=== PATIENT | female | born 1935 | race Caucasian/White ===

== ENCOUNTER 2018-10-21 17:02 | Inpatient (IN) | payer OTHER ==
[~2018-10-21] VITALS: Ht 167.6 cm; Wt 94.0 kg
[~2018-10-21 17:02] MED LIST: LEVAQUIN 500 M500 MG PO; PROAIR HFA8.5 GM IH; ULTRAM 50MG TAB50 MG PO; VICODIN 5-5001 EACH PO
[2018-10-21 17:03] VITALS: BP 153/78
[2018-10-21 18:03] LABS: ABSOLUTE NEUTROPHILS 6.4 thou/uL (1.4-8.2); BASOPHILS 0.8 % (0.0-2.0); EOSINOPHILS 2.3 % (0.0-3.0); HEMATOCRIT 43.4 % (37.0-47.0); HEMOGLOBIN 14.7 gm/dL (12.0-15.0); MCHC 33.9 g/dL (28.0-37.0); MCV 88.5 fL (80.0-100.0); MONOCYTES 8.6 % (1.0-8.0); PLATELET COUNT 263 thou/uL (150-400); POLYS 72.3 % (36.0-66.0); RBC 4.91 mil/uL (4.20-5.00); RDW 13.9 % (10.5-14.5); WBC 8.8 thou/uL (4.0-11.0)
[2018-10-21 18:09] LABS: CALCIUM 9.5 mg/dL (8.5-10.1); POTASSIUM 3.5 mmol/L (3.5-5.1)
[2018-10-21 18:21] LABS: TROPONIN-I 3.97 ng/mL (<0.06)
[2018-10-21] MEDS ORDERED: ZANAFLEX2 MG PO (19:03)
[2018-10-21] MEDS ORDERED: CATAPRES0.2 MG PO (19:04)
[2018-10-21] MEDS ORDERED: TOPROL XL100 MG PO (19:06)
[2018-10-21] MEDS ORDERED: CYMBALTA30 MG PO (19:06)
[2018-10-21] MEDS ORDERED: LOSARTAN POTAS100 MG PO (19:06)
[2018-10-21] MEDS ORDERED: ATIVAN0.5 MG PO (19:08)
[2018-10-21 20:19] VITALS: BP 153/78
[2018-10-21 20:37] LABS: PROTIME 10.2 Seconds (9.3-11.4)
[2018-10-21 20:59] VITALS: BP 153/78
[2018-10-21 21:00] VITALS: BP 144/77
[2018-10-22] VITALS (7 sets, daily range): BP systolic 104–136; BP diastolic 53–78
[2018-10-22 06:43] LABS: ANION GAP 8 mmol/L (7-16); BUN 11 mg/dL (7-18); CALCIUM 8.8 mg/dL (8.5-10.1); CHLORIDE 107 mmol/L (98-107); CHOLESTEROL 155 mg/dL (<200); CO2 29 mmol/L (21-32); GLUCOSE 113 mg/dL (74-106); HDL CHOLESTEROL 40 mg/dL (>40); LDL CHOLESTEROL 101 mg/dL (<100); POTASSIUM 3.8 mmol/L (3.5-5.1); SODIUM 144 mmol/L (136-145); TC:HDL 3.9 Ratio (Not establshd); TRIGLYCERIDE 73 mg/dL (<150); VLDL 15 mg/dL (<40)
--- NOTE | 2018-10-22 07:51 | NUR ---
ASSUME CARE 1900. PT/VITALS STABLE. INTERMITTENT CHEST PAIN NOTED. UP WITH CANE TO BATHROOM. PT STABLE. ASSESSMENT CHARTED. PROGRESSING WELL WITH POC. PT ON HEPARIN DRIP. NPO AFTER MIDNIGHT TO SEE CARDIOL;BOO GONZÁLES. POSSIBLE CATHERIZATION LATER TODAY. WILL CONTINUE TO MONITOR AND FOLLOW WITH POC
--- NOTE | 2018-10-22 07:57 | EKG ---
[place] [address] [facility] [place] [address] ELECTROCARDIOGRAM REPORT Name: WAI KAUFFMAN Room #: 200-I ADM IN M.R.#: [id number] Admission: 10/21/18 Attend Phys: Chetna Cash MD Discharge: Date of : 37 Report #: [id number] THIS REPORT FOR: //name// [facility] ED Test Date: 2018-10-21 Test Time: 17:17:36 Pat Name: WAI KAUFFMAN Department: Room: 200 Gender: F Heel Pricker: DULCE : 1935 Requested By: Martínez Hutton Order Number: [id number] MD: Chon Macias Measurements Intervals [place] Rate: 103 P: 75 RI: 154 QRS: 34 QRSD: 92 T: 233 QT: 386 QTc: 506 Interpretive Statements Sinus tachycardia Abnrm T, probable ischemia, anterolateral lds Prolonged QT interval Compared to ECG 11/12/2009 12:44:19 ST and T wave abnormality is new Prolonged QT interval now present Ventricular premature complex(es) no longer present Electronically Signed On 10-22-2018 7:57:01 ADVERTISING AGENT by Chon Macias [email or web address] <ELECTRONICALLY SIGNED> By: Chon Macias MD, [facility] 10/22/18 0757 [id number] 171 Chon Macias MD, [facility] /EPI
--- NOTE | 2018-10-22 08:01 | EKG ---
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: MANUEL : 1935 Requested By: Aliya Gilman Order Number: [id number] MD: Chon Macias Measurements Intervals [place] Rate: 80 P: 78 [place]: 177 QRS: 57 QRSD: 92 T: 243 QT: 464 QTc: 536 Interpretive Statements Sinus rhythm Abnormal T, probable ischemia, widespread Prolonged QT interval Compared to ECG 11/12/2009 12:44:19 No significant change was found Electronically Signed On 10-22-2018 8:01:37 CUSTOMER SUPPORT REPRESENTATIVE by Chon Macias [email or web address] <ELECTRONICALLY SIGNED> By: Chon Macias MD, [facility] 10/22/18 08 9 9 Chon Macias MD, [facility] /EPI
--- NOTE | 2018-10-22 16:15 | NUR ---
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
--- NOTE | 2018-10-22 16:36 | 2DMMODE ---
[facility] [address] [address] [address] 2 D/M-MODE ECHOCARDIOGRAM Name: JAMARIWAI RAMIREZ Room #: 200-I ADM IN M.R.#: [id number] Admission: 10/21/18 Attend Phys: Chetna Cash MD Discharge: Date of : 37 Date of Service: 10/22/18 1636 Report #: [id number] THIS REPORT FOR: //name// APPROVED REPORT Study performed: 10/22/2018 08:42:11 EXAM: Comprehensive 2D, Doppler, and color-flow Echocardiogram Patient Location: Echo lab Room #: 200 Status: routine BSA: 2.02 HR: 85 bpm BP: 136/78 mmHg Rhythm: NSR Other Information Study Quality: Adequate Indications Chest Pain Hypertension/HDD NSTEMI 2D Dimensions RVDd: 31.84 mm IVSd: 12.84 (7-11mm) LVOT Diam: 18.59 (18-24mm) LVDd: 43.14 mm PWd: 12.86 (7-11mm) Ascending Ao: 23.80 (22-36mm) LVDs: 27.68 (25-40mm) Aortic Root: 26.50 mm IVC: 17.00 mm Volumes Left Atrial Volume (Systole) Single Plane 4CH: 25.19 mL Single Plane 2CH: 30.44 mL LA ESV Index: 15.00 mL/m2 Aortic Valve AoV Peak Stephan.: 1.36 m/s AO Peak Gr.: 9.15 mmHg LVOT Max P.19 mmHg LVOT Max V: 1.02 m/s FABRICIO Vmax: 2.04 cm2 Mitral Valve E/A Ratio: 0.6 [facility] [address] [place] [address] 2 D/M-MODE ECHOCARDIOGRAM Name: WAI KAUFFMAN Room #: 200-I [facility].#: [id number] Admission: 10/21/18 Attend Phys: Chetna Cash MD Discharge: Date of : 37 Date of Service: 10/22/18 1636 Report #: [id number] MV Decel. Time: 242.54 ms MV E Max Stephan.: 0.53 m/s MV A Stephan.: 0.84 m/s MV PHT: 70.34 ms IVRT: 119.95 ms Pulmonary Valve PV Peak Stephan.: 0.90 m/s PV Peak Gr.: 3.26 mmHg Pulmonary Vein P Vein S: 0.45 m/s P Vein A: 0.28 m/s P Vein D: 0.28 m/s P Vein A Dur.: 124.6 msec P Vein S/D Ratio: 1.61 Tricuspid Valve TR Peak Stephan.: 2.52 m/s TR Peak Gr.: 25.43 mmHg PA Pressure: 30.00 mmHg Left Ventricle The left ventricle is normal size. severe hypokinesis noted of the distal anteroapical wall Mild concentric left ventricular hypertrophy. Left ventricular systolic function is moderately decreased. LVEF is 35-40%. Grade I - abnormal relaxation pattern. Right Ventricle The right ventricle is normal size. The right ventricular systolic function is normal. Atria Left atrium is mildly dilated. The right atrium size is normal. Aortic Valve Aortic valve is calcified. No aortic regurgitation is present. There is no aortic valvular stenosis. Mitral Valve The mitral valve is normal in structure. There is no mitral valve regurgitation noted. No evidence of mitral valve stenosis. Tricuspid Valve The tricuspid valve is normal in structure. There is trace tricuspid regurgitation. Estimated PAP 30 mmHg. [facility] [address] [place] [address] 2 D/M-MODE ECHOCARDIOGRAM Name: WAI KAUFFMAN Room #: 200-I [facility] IN .R.#: [id number] Admission: 10/21/18 Attend Phys: Chetna Cash MD Discharge: Date of : 37 Date of Service: 10/22/18 1636 Report #: [id number] Pulmonic Valve The pulmonary valve is normal in structure. There is no pulmonic valvular regurgitation. Great Vessels The aortic root is normal in size. IVC is normal in size and collapses >50% with inspiration. Pericardium There is no pericardial effusion. <Conclusion> Mild concentric left ventricular hypertrophy. LVEF is 35-40%. Left atrium is mildly dilated. Aortic valve is calcified. <ELECTRONICALLY SIGNED> By: Javed David MD, FACC 10/22/18 1636 163 163 Javed David MD, FAC /INF
--- NOTE | 2018-10-22 17:12 | CATHLAB ---
[place] [address] [facility] [place] [address] INVASIVE PROCEDURE REPORT Name: WAI KAUFFMAN Room #: 200-I ADM IN .R.#: [id number] Admission: 10/21/18 Attend Phys: Chetna Cash MD Discharge: Date of : 37 Date of Service: 10/22/18 1712 Report #: [id number] THIS REPORT FOR: //name// APPROVED REPORT Study performed: 10/22/2018 12:30:37 Patient Details Patient Status: In-Patient Room #: The patient is a 82 year-old female Event Personnel Javed David Electric Power Machine Operator, Tio Bucio RN, Shanthi Hreedia Sandifer, David Monitor Procedures Performed Left Heart Cath w/or w/o Coronaries [id number] [facility] Indication Non-STEMI , Chest pain Risk Factors Hypertension Procedure Narrative The patient was brought electively to the Cardiac Catheterization Laboratory and was prepped and draped in a sterile manner. The Right Wrist^ was infiltrated with 1% Lidocaine subcutaneous anesthesia. A TRANSRADIAL SLENDER 6F GLIDESHEATH KIT #[id number] sheath was inserted into the Right Radial Artery^. Coronary angiography was performed using coronary diagnostic catheters. The right coronary system was accessed and visualized with a JR4 catheter. The left coronary system was accessed and visualized with a JL4 catheter. The left ventricle was accessed and visualized with a PIGTAIL catheter. Left ventricular/Aortic Valve gradient assessed via catheter pullback. Left ventriculogram was performed in 30 degree projection. Closure device was deployed with a 6 Fr VASC BAND L 27CM #[id number]. The patient tolerated the procedure well and there were no complications associated with the procedure. There was no hematoma. Intraoperative Conscious Sedation Sedation start time: 15.15 Case end Time: 16.04 Fentanyl 75 mcg Versed 3 mg [facility] [facility] [place] [address] INVASIVE PROCEDURE REPORT Name: WAI KAUFFMAN Room #: 200-I ADM IN ..#: [id number] Admission: 10/21/18 Attend Phys: Chetna Cash MD Discharge: Date of : 37 Date of Service: 10/22/18 1712 Report #: [id number] Fluoro Time: 3.27 minutes Dose: DAP 2350 cGycm2 226 mGy Contrast Type and Amount: Omnipaque 95 ml Coronary Angiography The patient's coronary anatomy is right dominant. [place] Artery Percent Stenosis Left Main: 0 % Prox LAD: 30 % Mid/Distal LAD: 50 % Circumflex: 0 % RCA: 0 % Ramus: % Left Ventriculography The left ventricular ejection fraction is estimated to be 35-40%. Left ventricular wall motion abnormalities are present. There is 1+ mitral insufficiency. akinesis noted of the distal anteroapical wall and apex Hemodynamics The aortic pressure is 152/83 mmHg with a mean of 111 mmHg. The left ventricular end diastolic pressure is 25 mmHg. There was no gradient across the aortic valve upon pullback. Pullback from the left ventricle to the aorta revealed no gradient across the aortic valve. Conclusion 1. no significant cad 2. LVEF 35-40% 3. findings consistent with apical ballooning syndrome Recommendations Aggressive Medical Therapy <ELECTRONICALLY SIGNED> By: Javed David MD, FACC 10/22/181711 11 11 Javed David MD, FACC /INF
--- NOTE | 2018-10-22 17:14 | HC ---
[facility] [place] [address] CONSULTATION Name: WAI KAUFFMAN Room #: 200-I ADM IN M.R.#: [id number] Admission: 10/21/18 Attend Phys: Chetna Cash MD Discharge: Date of : 37 Report #: [id number] THIS REPORT FOR: //name// CC: Chetna Borrego MD DATE OF SERVICE: 10/22/2018 HISTORY OF PRESENT ILLNESS: The patient is an 82-year-old single white female who I was asked to see in the hospital today after she complained of chest pain. The patient denies a previous history of heart disease. She has had no previous cardiac evaluation. She is not very active at this time because of her age. She was doing well until 3 days ago when she went out to dinner. She woke up at night with loose stools. She denied any blood in her stool. She then noticed she had an aching in her chest that went into her neck. She felt short of breath and diaphoretic. She denied any nausea. The discomfort lasted off and on throughout most of the day. She stayed in bed throughout the day. She woke up yesterday morning and called her physician. She went to see him in the office. She was noted to have an abnormal ECG. She was sent to the Emergency Room to be admitted for further evaluation and treatment. She notes after arriving here to the hospital, her chest pain resolved. She had no further shortness of breath. She denied any recent fever or bleeding. She denies exertional dyspnea, palpitations or syncope. PAST MEDICAL HISTORY: She has had a previous cataract extraction, cholecystectomy, removal of her ovaries. She is hard of hearing. She has hypertension. No history of diabetes, hyperlipidemia. MEDICATIONS: On admission consist of clonidine, losartan, metoprolol, Cymbalta, Zanaflex. ALLERGIES: SHE IS INTOLERANT TO NAPROSYN AND SULFA. FAMILY HISTORY: Mother and father had stroke. SOCIAL HISTORY: She is , lives by herself in [place], [place]. No smoking or alcohol abuse. REVIEW OF SYSTEMS: She has had no history of stroke, asthma, peptic ulcer disease, liver disease, kidney disease. She has a history of breast cancer, had a mastectomy. PHYSICAL EXAMINATION: GENERAL: Revealed an elderly female who appeared in no acute distress. VITAL SIGNS: She had a blood pressure of 130/70, pulse 70. She is afebrile. [facility] [address] [place] [address] CONSULTATION Name: WAI KAUFFMAN Room #: 200-I [facility]#: [id number] Admission: 10/21/18 Attend Phys: Chetna Cash MD Discharge: Date of : 37 Report #: [id number] HEENT: She is anicteric. Conjunctivae pink. Mucous membranes moist. NECK: Veins do not appear distended. No carotid bruits. Neck was supple. CHEST: Clear to auscultation. CARDIOVASCULAR: Regular rate and rhythm, grade 2 systolic ejection murmur. ABDOMEN: Soft. EXTREMITIES: Had no edema. Dorsalis pedis pulse 2+ bilaterally. SKIN: Warm, dry. NEUROLOGIC: Nonfocal. LYMPH: No adenopathy. MUSCULOSKELETAL: No joint effusion. Her ECG on admission yesterday showed sinus rhythm with deep T-wave inversion in leads V3, V4, V5, V6 consistent with ischemia. Her workup in the Emergency Room yesterday, she had a chest x-ray that showed normal heart size, calcified aorta, hyperinflated lung elizalde. LABORATORY DATA: Sodium 144, creatinine 1.0. Liver function studies were normal. Her troponin on admission was 3.97, this morning is 2.54. Cholesterol 155, triglyceride 73, HDL 40, LDL 101. White blood cell count 8.8, hemoglobin 14.7. IMPRESSION AND RECOMMENDATIONS: 1. Non-ST segment elevation myocardial infarction. Recommend cardiac catheterization. 2. Hypertension. The patient has been on a beta nanette, ARB and clonidine. 3. Neuropathy. 4. History of colon polyps. 5. History of breast cancer. 6. History of ulcerations of the bladder. 7. Hard of hearing. <ELECTRONICALLY SIGNED> By: Javed David MD, FACC 10/22/18 1714 0730 0846 Javed David MD, FACC /nt
[2018-10-22 18:10] LABS: GLYCOHEMOGLOBIN (HGB A1C) 5.3 % (4.8-5.6)
--- NOTE | 2018-10-22 20:30 | NUR ---
ASSUMED CARE OF PT AT 0700. PT A&OX4, UP WITH CANE. PT VITALS WNL AND PT DENIED CHEST PAIN. PT WENT TO BUSINESS PLANNER AT APPROX 1500, AND RETURNED TO UNIT AT 1630. PT HAD RIGHT RADIAL ACCESS WITH NO HEMATOMA OR BLEEDING, SENSATION INTACT. WILL CONT WITH POC.
[2018-10-23 00:45] VITALS: BP 151/91
[2018-10-23 03:55] LABS: CALCIUM 8.9 mg/dL (8.5-10.1); POTASSIUM 4.1 mmol/L (3.5-5.1); TOTAL BILIRUBIN 0.6 mg/dL (<0.1-1.0); TOTAL PROTEIN 5.9 g/dL (6.4-8.2)
[2018-10-23 04:45] VITALS: BP 146/71
[2018-10-23 07:20] VITALS: BP 171/98
--- NOTE | 2018-10-23 07:54 | NUR ---
assume care 1900. pt/vitals stable. mild chest pain noted post cath. right radial access CDI. extremity pink, warm and dry. assessment as charted. progressing well with poc. cath 10/22/18 with no interventions. plan is possible discharge todAY. WILL CONTINUE TO FOLLOW WITH POC
[2018-10-23 09:29] VITALS: BP 107/63
[2018-10-23] MEDS ORDERED: ASPIR 8181 MG PO (10:27)
[2018-10-23 10:32] VITALS: BP 107/63
--- NOTE | 2018-10-23 10:59 | NUR ---
ASSESSMENT DOCUMENTED. PT ALERT AND ORIENTED. NO CARDIAC OR RESPITORY DISTRESS NOTED. SEEN BY DR. BOYD. ORDERS GIVEN TO DISCHARGE PT TO HOME. DISCHARGE INSTRUCTIONS GIVEN TO PT AND THE DAUGHTER. PT VERBERLIZE UNDERSTANDING.
--- NOTE | 2018-10-23 11:56 | NUR ---
met with patient who is A/Ox4 she is discharging today. Patient reports she lives at home with her son. 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 steps to basement. She has neuropathy and reports she has done out patient therapy here at [facility]. Discussed home health care and patient reports she does not want home health care. she plans home independently, no further needs
== END 2018-10-23 10:57 | disposition home or self-care (01) | DRG 280 ==
LOC: ER 17:02 → EROBS 19:20 → 2N 19:20 → ENTRNSPT 10-23 10:44 → EDTRNSPTSTS 10-23 10:46 → 2N 10-23 10:57
PROVIDERS: Emergency Medicine; Internal Medicine Cardiovascular Disease; Nurse Practitioner Family; ADMIT Internal Medicine
PROC: 4A023N7 Measurement of Cardiac Sampling and Pressure, Left Heart, Percutaneous Approach (ICD-10-PCS; principal; 2018-10-22)
PROC: B2151ZZ Fluoroscopy of Left Heart using Low Osmolar Contrast (ICD-10-PCS; principal; 2018-10-22)
PROC: B2111ZZ Fluoroscopy of Multiple Coronary Arteries using Low Osmolar Contrast (ICD-10-PCS; principal; 2018-10-22)
DX: I21.3 ST elevation (STEMI) myocardial infarction of unspecified site (principal); I50.33 Acute on chronic diastolic (congestive) heart failure; I51.81 Takotsubo syndrome; Z79.82 Long term (current) use of aspirin; I10 Essential (primary) hypertension; G62.9 Polyneuropathy, unspecified; H91.90 Unspecified hearing loss, unspecified ear; F41.9 Anxiety disorder, unspecified; F32.9 Major depressive disorder, single episode, unspecified; Z79.899 Other long term (current) drug therapy; Z90.49 Acquired absence of other specified parts of digestive tract; Z88.2 Allergy status to sulfonamides; Z88.8 Allergy status to other drugs, medicaments and biological substances; Z98.49 Cataract extraction status, unspecified eye; Z82.3 Family history of stroke; Z86.010 Personal history of colon polyps; Z85.3 Personal history of malignant neoplasm of breast; Z90.12 Acquired absence of left breast and nipple; Z83.3 Family history of diabetes mellitus
CPT/HCPCS: 10081